=== PATIENT | female | born 1960 | race Caucasian/White ===

== ENCOUNTER 2017-05-17 15:46 | Emergency (ER) | payer OTHER ==
[2017-05-17 16:05] VITALS: BP 133/64
--- NOTE | 2017-05-17 18:31 | UC ---
Avtar Baez Tiffany, scribed for Luis Fowler MD on 05/17/17 at 1720 . Dental HPI - HPI Summary HPI Summary: This patient is a 56 year old F presenting to [facility] accompanied by daughter with a chief complaint of tooth pain s/p eating a bagel today and chipping her tooth. The patient rates the pain 2/10 in severity. Symptoms aggravated by nothing. Symptoms alleviated by nothing. - History of Current Complaint Chief Complaint: UCDentalProblem Stated Complaint: DENTAL COMPLAINT Time Seen by Provider: 05/17/17 16:48 Hx Obtained From: Patient Onset/Duration: Lasting Hours - Earlier today, Still Present Pain Intensity: 2 Pain Scale Used: 0-10 Numeric Aggravating Factor(s): Nothing Alleviating Factor(s): Nothing - Allergies/Home Medications Allergies/Adverse Reactions: Allergies Allergy/AdvReac Type Severity Reaction Status Date / Time No Known Allergies Allergy Verified 05/17/17 16:05 Home Medications: Home Medications Atorvastatin* [Lipitor*] 10 mg PO 1700 05/17/17 [History Confirmed 05/17/17] Levothyroxine TAB* [Synthroid TAB*] 88 mcg PO 0800 05/17/17 [History Confirmed 05/17/17] PMH/Surg Hx/FS Hx/Imm Hx Previously Healthy: No Endocrine History: Thyroid Disease - Hashimotos, Other - hyperlipidemia Other Endocrine History: . - Surgical History Surgical History: None - Family History Known Family History: Positive: Unknown - Social History Alcohol Use: Occasionally Substance Use Type: None Smoking Status (MU): Former Smoker When Did the Patient Quit Smoking/Using Tobacco: '89 - Immunization History Most Recent Influenza Vaccination: fall 2016 Review of Systems Constitutional: Negative - Fever ENT: Dental Pain All Other Systems Reviewed And Are Negative: Yes Physical Exam Triage Information Reviewed: Yes Vital Signs: Initial Vital Signs Temp 98.1 F 05/17/17 16:01 Pulse 76 05/17/17 16:01 Resp 16 05/17/17 16:01 BP 133/64 05/17/17 16:01 Pulse Ox 100 05/17/17 16:01 Vital Signs Reviewed: Yes - Additional Comments General: well-appearing, no pain distress Skin: warm, color reflects adequate perfusion, dry Head: normal Eyes: EOMI, RUFUS ENT: normal DENTAL: Tooth#32 left lower is missing outward facing enamel, no obvious dentin Neck: supple, nontender Respiratory: CTA, breath sounds present Cardiovascular: RRR Abdomen: soft, nontender Bowel: present Musculoskeletal: normal, strength/ROM intact Neurological: normal, sensory/motor intact, A&O x3 Psychological: affect/mood appropriate Dental Complaint Course/Dx - Course Course Of Treatment: BP noted and advised to follow up with PCP. Medications reviewed. NO PULP OR NERVE SEEN ON EXAM. RX ABX AND PAIN MEDS TO TAKE PRN IF PAIN/INFECTION OCCURS. F/U DENTIST. - Differential Dx/Diagnosis Provider Diagnoses: CHIPPED LOWER LEFT TOOTH Discharge - Discharge Plan Condition: Stable Disposition: HOME Prescriptions: Penicillin VK 500 MG TAB(NF) [Penicillin VK 500 mg Tab] 500 mg PO QID #40 tab traMADol TAB* [Ultram*] 50 mg PO Q6HR PRN #15 tab MDD 4 PRN Reason: Pain Patient Education Materials: Acute Dental Trauma (ED) Referrals: [facility] [Outside] No Primary Care Phys,NOPCP [Primary Care Provider] - Additional Instructions: FOLLOW UP WITH YOUR DENTIST. GET RECHECKED FOR ANY WORSENING OF YOUR CONDITION OR QUESTIONS OR CONCERNS. The documentation as recorded by the Avtar kang Tiffany accurately reflects the service I personally performed and the decisions made by me, Luis Fowler MD.
== END 2017-05-17 17:12 | disposition home or self-care (01) ==
LOC: UCEAST 15:46
DX: K03.81 Cracked tooth (principal); E78.5 Hyperlipidemia, unspecified; E06.3 Autoimmune thyroiditis; Z87.891 Personal history of nicotine dependence
CPT/HCPCS: 99202; G0463